=== PATIENT | male | born 1935 | race Asian ===

== ENCOUNTER 2021-02-16 08:16 | Inpatient (IN) | payer BC, OTHER ==
[~2021-02-16] VITALS: Ht 167.6 cm; Wt 70.3 kg
--- NOTE | 2021-02-16 08:28 | NUR ---
PT BIBRA FROM HOME TO ER BED 09, PER SEAMING MACHINE OPERATOR REPORT PT WAS C/O INTERMITTENT EPIGASTRIC AREA PAIN SINCE LAST NIGHT WORST X 1 HOUR QUALITY RN. PT STATES PAIN RESOLVE QUALITY RN. BUT IS ALSO C/O DIFFICULTY BREATHING SINCE 5AM. PT DENIES N/V/D. AFEBRILE. VSS. AWAITING MD SPIVEY.
--- NOTE | 2021-02-16 08:33 | NUR ---
DAUGHTER PRITI CONTACT # [phone]
--- NOTE | 2021-02-16 08:35 | NUR ---
DR HUNTLEY AT BEDSIDE FOR EVAL.
--- NOTE | 2021-02-16 08:40 | NUR ---
IV LINE STARTED BLOOD DRAWN AND SENT TO LAB.
[2021-02-16] MEDS ORDERED: SODI325T PO (08:50)
[2021-02-16] MEDS ORDERED: LOSA100T31 PO (08:50)
[2021-02-16] MEDS ORDERED: ALFU10TA10 PO (08:50)
[2021-02-16] MEDS ORDERED: OMEP40CA21 PO (08:50)
[2021-02-16] MEDS ORDERED: ATOR40TA PO (08:50)
[2021-02-16] MEDS ORDERED: LATA2.5D15 EACHEYE (08:50)
[2021-02-16 08:52] LABS: BASOPHILS % (AUTO) 0.8 % (0.0-2.0); HEMATOCRIT 31 % (39-51); HEMOGLOBIN 10.3 g/dL (13.5-17.5); LYMPHOCYTES # (AUTO) 1.3 K/uL (0.8-4.8); LYMPHOCYTES % (AUTO) 27.1 % (20.0-44.0); MEAN CORPUSCULAR HGB CONC 34 g/dl (31.0-36.0); MEAN CORPUSCULAR VOLUME 100 fL (80-96); MONOCYTES # (AUTO) 0.7 K/uL (0.1-1.30); MONOCYTES % (AUTO) 13.7 % (2.0-12.0); NEUTROPHILS # (AUTO) 2.7 K/uL (1.8-8.9); NEUTROPHILS % (AUTO) 55.4 % (43.0-81.0); PLATELET COUNT (AUTO) 112 K/uL (150-450); RED BLOOD CELL COUNT(AUTO) 3.06 MIL/uL (4.5-6.0); WHITE BLOOD COUNT (AUTO) 4.9 K/uL (4.3-11.0)
[2021-02-16 09:00] LABS: CARBON DIOXIDE 21 mmol/L (21-32); CHLORIDE 107 mmol/L (98-107); GLUCOSE 105 mg/dL (74-106); POTASSIUM 5.8 mmol/L (3.5-5.1); SODIUM SERUM 140 mmol/L (136-145); UREA NITROGEN, BLOOD 43 mg/dL (7-18)
[2021-02-16 09:13] LABS: ALANINE AMINOTRANSFERASE 53 U/L (12-78); ALBUMIN 3.4 g/dL (3.4-5.0); ALKALINE PHOSPHATASE 84 U/L (46-116); ASPARTATE AMINOTRANSFERASE 37 U/L (15-37); BILIRUBIN,DIRECT 0.1 mg/dL (0.0-0.2); BILIRUBIN,TOTAL 0.3 mg/dL (0.2-1.0); TOTAL PROTEIN, SERUM 6.9 g/dL (6.4-8.2)
--- NOTE | 2021-02-16 10:48 | NUR ---
CALLED NURSING SUP FOR TELE BED.
[2021-02-16] MEDS ORDERED: MAGNESIUM HYDROXIDE 30 ML UDC PO PRN (11:30)
[2021-02-16] MEDS ORDERED: ONDANSETRON HCL/PF 4 MG/2 ML VIAL IVP PRN (11:30)
[2021-02-16] MEDS ORDERED: MAG HYDROX/AL HYDROX/SIMETH 30 ML UDC PO PRN (11:30)
[2021-02-16] MEDS ORDERED: HYDROCODONE/APAP 5/325MG TABLET PO PRN (11:30)
[2021-02-16] MEDS ORDERED: MORPHINE SULFATE INJ 2 MG/ML DISP.SYRIN IV PRN (11:30)
[2021-02-16] MEDS ORDERED: Z GUARD REMEDY 2 OZ OINT TP PRN (11:30)
--- NOTE | 2021-02-16 11:35 | NUR ---
DAQUAN DAUGHTER LEFT CONTACT [phone]
--- NOTE | 2021-02-16 12:39 | NUR ---
REPORT GIVEN TO TERRY. AWAITING TRANSFER TO FLOOR.
--- NOTE | 2021-02-16 12:45 | NUR ---
PANTOGRAPH ENGRAVERPLUSH BRUSHER NOTE RECEIVED PATIENT FROM ER. STABLE - VITALS: 173/82. WEIGHT 155.5 A/O X3, SPEAKS INDONESIAN BUT UNDERSTANDS MONGOLIAN. PATIENT CAME IN DUE TO C/O EPIGASTRIC PAIN SINCE LAST NIGHT. IV ACCESS TO LEFT AC #20 - INTACT AND PATENT. NO CENTENO NOTED. PATIENT IS AMBULATORY WITH CANE. SKIN INTACT. FAMILY AT BEDSIDE. SAFETY MEASURES IN PLACE. CALL LIGHT WITHIN REACH. WILL CONTINUE TO MONITOR.
[2021-02-16 13:00] VITALS: BP 173/82
[2021-02-16 16:00] VITALS: BP 135/84
[2021-02-16] MEDS: SODIUM BICARBONATE 325 MG TABLET PO SCH (16:50)
--- NOTE | 2021-02-16 18:49 | NUR ---
ELECTROMEDICAL SERVICE ENGINEER CLOSING NOTE PATIENT CURRENTLY LYING IN BED, FAMILY AT BEDSIDE. A/O X3. SPEAKS BELARUSIAN BUT UNDERSTANDS DIVEHI. IV ACCESS TO LEFT AC #20 - INTACT AND PATENT, S/L. PATIENT IS AMBULATORY WITH CANE. SKIN INTACT. SAFETY MEASURES IN PLACE. CALL LIGHT WITHIN REACH. WILL ENDORSE TO ORIGINATION SPECIALIST NURSE FOR MILLIE.
[2021-02-16] MEDS: IV D5/ 0.9% NACL 1,000 ML IV PRN (18:52)
[2021-02-16] MEDS: ACETAMINOPHEN 325 MG TABLET PO PRN (18:52)
--- NOTE | 2021-02-16 19:05 | NUR ---
DATA WAREHOUSING ENGINEER OPENING NOTES: RECEIVED PATIENT IN BED, ASLEEP, EASILY AROUSABLE. NO S/S OF DISTRESS NOTED. A/O X3. NO COMPLAIN OF PAIN. CALL LIGHT WITHIN REACH. BED ALARM ON. BED IN LOWEST AND LOCKED POSITION. REMINDED PATIENT RE: URINE COLLECTION, VERBALIZED UNDERSTANDING.
[2021-02-16 20:00] VITALS: BP 128/72
[2021-02-16 20:11] LABS: IRON, SERUM 63 ug/dl (50-175); TOTAL IRON BINDING CAPACITY 191 ug/dl (250-450)
[2021-02-16 20:28] LABS: CHOLESTEROL 132 mg/dL (<200); FERRITIN 579 ng/mL (8-388); HDL CHOLESTEROL 58 mg/dL (40-60); LDL 55 mg/dL (0-99); TRIGLYCERIDES 135 mg/dL (30-150)
[2021-02-16] MEDS: LATANOPROST EYE DROP 0.005% 2.5 ML BOTTLE EACHEYE SCH (20:58)
[2021-02-16 23:26] LABS: BILIRUBIN,URINE NEGATIVE (NEGATIVE); COLOR,URINE YELLOW (YELLOW); LEUKOCYTE ESTERASE ,URINE NEGATIVE (NEGATIVE); NITRITE, URINE NEGATIVE (NEGATIVE); PH,URINE 7.5 (5.0-8.0); PROTEIN,URINE 30 mg/dl (NEGATIVE); UGLUCOSE NEGATIVE (NEGATIVE); UROBILINOGEN,URINE 0.2 EU/dL (0.2)
[2021-02-17] VITALS: BP 140/66
[2021-02-17] MEDS: TEMAZEPAM 15 MG CAPSULE PO PRN ×2 (00:02→21:01)
[2021-02-17 01:36] LABS: BACTERIA,URINE None seen /HPF (None Seen); RBC,URINE 0-2 /HPF (0-2); SQUAMOUS EPITHELIAL CELL,UR Few /HPF (None Seen); WBC,URINE 0-2 /HPF (0-3)
[2021-02-17 04:00] VITALS: BP 166/88
[2021-02-17] MEDS: IV D5/ 0.9% NACL 1,000 ML IV PRN ×3 (04:09→21:49)
[2021-02-17] MEDS: ACETAMINOPHEN 325 MG TABLET PO PRN (04:56)
--- NOTE | 2021-02-17 05:03 | NUR ---
patient complained of abdominal pain and stomach upset, tylenol 650 mg and maalox given.
[2021-02-17 05:54] VITALS: BP 168/83
--- NOTE | 2021-02-17 06:11 | NUR ---
RV=920/93, DR CHET BERRY INFORMED.
[2021-02-17 06:31] LABS: CHOLESTEROL 124 mg/dL (<200); HDL CHOLESTEROL 58 mg/dL (40-60); LDL 55 mg/dL (0-99); THYROID STIMULATING HORMONE 1.579 uIU/mL (0.358-3.74); TRIGLYCERIDES 112 mg/dL (30-150)
--- NOTE | 2021-02-17 06:46 | NUR ---
ENTERPRISE ACCOUNT EXECUTIVE CLOSING NOTES: PATIENT RESTING IN BED, ASLEEP. A/O X4. NO S/S OF DISTRESS NOTED. CALL LIGHT WITHIN REACH. BED ALARM ON. BED IN LOWEST AND LOCKED POSITION. URINAL AT THE BEDSIDE.
[2021-02-17 06:50] LABS: BASOPHILS % (AUTO) 0.4 % (0.0-2.0); HEMATOCRIT 30 % (39-51); HEMOGLOBIN 10.1 g/dL (13.5-17.5); LYMPHOCYTES # (AUTO) 1.6 K/uL (0.8-4.8); LYMPHOCYTES % (AUTO) 32.3 % (20.0-44.0); MEAN CORPUSCULAR HGB CONC 34 g/dl (31.0-36.0); MEAN CORPUSCULAR VOLUME 100 fL (80-96); MONOCYTES # (AUTO) 0.5 K/uL (0.1-1.30); MONOCYTES % (AUTO) 10.7 % (2.0-12.0); NEUTROPHILS # (AUTO) 2.6 K/uL (1.8-8.9); NEUTROPHILS % (AUTO) 53.6 % (43.0-81.0); PLATELET COUNT (AUTO) 113 K/uL (150-450); RED BLOOD CELL COUNT(AUTO) 2.94 MIL/uL (4.5-6.0); WHITE BLOOD COUNT (AUTO) 4.8 K/uL (4.3-11.0)
[2021-02-17 07:09] LABS: ALANINE AMINOTRANSFERASE 40 U/L (12-78); ALBUMIN 3.2 g/dL (3.4-5.0); ALKALINE PHOSPHATASE 59 U/L (46-116); ASPARTATE AMINOTRANSFERASE 23 U/L (15-37); BILIRUBIN,TOTAL 0.4 mg/dL (0.2-1.0); CALCIUM, SERUM 8.5 mg/dL (8.5-10.1); CARBON DIOXIDE 20 mmol/L (21-32); CHLORIDE 109 mmol/L (98-107); CREATININE 2.8 mg/dL (0.6-1.3); GLUCOSE 110 mg/dL (74-106); MAGNESIUM 1.9 mg/dL (1.8-2.4); PHOSPHORUS 3.9 mg/dL (2.5-4.9); POTASSIUM 5.3 mmol/L (3.5-5.1); SODIUM SERUM 140 mmol/L (136-145); TOTAL PROTEIN, SERUM 6.5 g/dL (6.4-8.2); UREA NITROGEN, BLOOD 36 mg/dL (7-18)
--- NOTE | 2021-02-17 07:30 | NUR ---
HOOF TRIMMER OPENING TRISH RECEIVED PATIENT SITTING ON BED, AWAKE AND RESPONSIVE, A/O X4. WITH IIV ACCESS AT RIGHT ARM WITH D5NS AT 125MLS/HR. WITHOUT COMPLAINTS OF PAIN AND SOB. NOT IN DISTRESS. SAFETY MEASURES IN PLACED. CALL LIGHTS WITHIN REACH. BED IN LOWEST AND LOCKED POSITION. TO CONTINUE TO MONITOR.
[2021-02-17 08:00] VITALS: BP 151/84
[2021-02-17] MEDS: PANTOPRAZOLE 40 MG TABLET.DR PO SCH (08:07)
[2021-02-17] MEDS: TAMSULOSIN 0.4 MG CAP.SR.24H PO SCH (09:12)
[2021-02-17] MEDS: ATORVASTATIN 40 MG TABLET PO SCH (09:13)
[2021-02-17] MEDS: SODIUM BICARBONATE 325 MG TABLET PO SCH (09:21)
[2021-02-17 16:00] VITALS: BP 139/72
[2021-02-17] MEDS: SODIUM BICARBONATE 650 MG TABLET PO SCH (17:00)
--- NOTE | 2021-02-17 18:26 | NUR ---
MS RN CLOSING NOTES PATIENT SITTING ON BED, AWAKE, A/O X4. WITH IV ACCESS AT LEFT AC #20 WITH IVF D5NS AT 125ML/HR AND AT LEFT HAND #22, SALINE LOCKED. WITH NO COMPLAINTS OF PAIN AND SOB. NOT IN DISTRESS. SAFETY MEASURES IN PLACED. CALL LIGHT WITHIN REACH. BED ALARM ON. BED ON LOWEST AND LOCKED POSITION, SIDE RAILS UP X2. URINAL AT THE BEDSIDE. NEEDS ATTENDED. WILL ENDORSE FOR MILLIE TO BARREL RAISER.
--- NOTE | 2021-02-17 19:18 | NUR ---
MS RN NOTES PATIENT SITTING ON BED, AWAKE, A/O X4. WITH IV ACCESS AT LEFT AC #20 WITH IVF D5NS AT 125ML/HR AND AT LEFT HAND #22, SALINE LOCKED. WITH NO COMPLAINTS OF PAIN AND SOB. NOT IN DISTRESS. SAFETY MEASURES IN PLACED. CALL LIGHT WITHIN REACH. BED ALARM ON. BED ON LOWEST AND LOCKED POSITION, SIDE RAILS UP X2. URINAL AT THE BEDSIDE. NEEDS ATTENDED. WILL CONTINUE TO MONITOR.
[2021-02-17 20:50] VITALS: BP 135/73
[2021-02-17] MEDS: LATANOPROST EYE DROP 0.005% 2.5 ML BOTTLE EACHEYE SCH (21:01)
[2021-02-18 06:16] LABS: BASOPHILS % (AUTO) 0.5 % (0.0-2.0); EOSINOPHILS % (AUTO) 3.4 % (0.0-6.0); HEMATOCRIT 29 % (39-51); LYMPHOCYTES # (AUTO) 1.3 K/uL (0.8-4.8); LYMPHOCYTES % (AUTO) 28.7 % (20.0-44.0); MEAN CORPUSCULAR HGB CONC 35 g/dl (31.0-36.0); MEAN CORPUSCULAR VOLUME 101 fL (80-96); MONOCYTES # (AUTO) 0.5 K/uL (0.1-1.30); NEUTROPHILS # (AUTO) 2.5 K/uL (1.8-8.9); NEUTROPHILS % (AUTO) 56.4 % (43.0-81.0); PLATELET COUNT (AUTO) 116 K/uL (150-450); RED BLOOD CELL COUNT(AUTO) 2.86 MIL/uL (4.5-6.0); WHITE BLOOD COUNT (AUTO) 4.4 K/uL (4.3-11.0)
--- NOTE | 2021-02-18 06:33 | NUR ---
MS RN NOTES PATIENT SITTING ON BED, AWAKE, A/O X4. WITH IV ACCESS AT LEFT AC #20 WITH IVF D5NS AT 125ML/HR AND AT LEFT HAND #22, SALINE LOCKED. WITH NO COMPLAINTS OF PAIN AND SOB. NOT IN DISTRESS. SAFETY MEASURES IN PLACED. CALL LIGHT WITHIN REACH. BED ALARM ON. BED ON LOWEST AND LOCKED POSITION, SIDE RAILS UP X2. URINAL AT THE BEDSIDE. NEEDS ATTENDED. ALL DUE MEDS GIVEN AND TOLERATED WELL WILL ENDORSE TO DAY SHIFT NURSE.
[2021-02-18 06:58] LABS: ALANINE AMINOTRANSFERASE 38 U/L (12-78); ALBUMIN 3.2 g/dL (3.4-5.0); ALKALINE PHOSPHATASE 67 U/L (46-116); ASPARTATE AMINOTRANSFERASE 30 U/L (15-37); BILIRUBIN,TOTAL 0.2 mg/dL (0.2-1.0); CALCIUM, SERUM 8.1 mg/dL (8.5-10.1); CARBON DIOXIDE 19 mmol/L (21-32); CHLORIDE 113 mmol/L (98-107); CREATININE 2.7 mg/dL (0.6-1.3); GLUCOSE 97 mg/dL (74-106); MAGNESIUM 1.7 mg/dL (1.8-2.4); PHOSPHORUS 3.7 mg/dL (2.5-4.9); SODIUM SERUM 143 mmol/L (136-145); TOTAL PROTEIN, SERUM 6.3 g/dL (6.4-8.2); UREA NITROGEN, BLOOD 28 mg/dL (7-18)
--- NOTE | 2021-02-18 07:30 | NUR ---
RN MS NOTES PT AWAKE, ALERT AND ORIENTED, SITTING IN BED, DENIES PAIN, NOT IN DISTRESS, CALL LIGHT WITHIN REACH, ASSISTED WITH NEEDS.
[2021-02-18] MEDS: PANTOPRAZOLE 40 MG TABLET.DR PO SCH (08:06)
[2021-02-18] MEDS: TAMSULOSIN 0.4 MG CAP.SR.24H PO SCH (08:06)
[2021-02-18] MEDS: SODIUM BICARBONATE 650 MG TABLET PO SCH (08:06)
[2021-02-18] MEDS: ATORVASTATIN 40 MG TABLET PO SCH (08:06)
[2021-02-18 08:30] VITALS: BP 143/88
--- NOTE | 2021-02-18 09:28 | NUR ---
RN MS NOTES PT SEEN AND EXAMINED BY DR. SHARPE, PLAN OF CARE DISCUSSED WITH PT AND DAUGHTER DAQUAN OVER THE PHONE, VERBALIZED UNDERSTANDING, MD CLEARED PT FOR DISCHARGE.
[2021-02-18] MEDS ORDERED: Magnesium 1GM/D5W 100ML PREMIX 100 ML IV SCH (09:30)
[2021-02-18] MEDS ORDERED: AMLO-212 PO (11:44)
--- NOTE | 2021-02-18 13:05 | NUR ---
MS STEAM TRAP WORKER NOTES PATIENT SITTING ON BED WITH NO COMPLAINT OF PAIN. NO SOB NOTER. NOT IN DISTRESS. FOR DISCHARGE PER DOCTOR'S ORDER. PRESCRIPTION GIVEN TO PATIENT AND DISCHARGE INSTRUCTION PROVIDED. PATIENT VERBALIZED UNDERSTANSING. ALL BELONGINGS CHECKED. INSTRUCTED PATIENT TO FOLLOW UP WITH PCP 1 WEEK AFTER DISCHARGE. ASSISTED PATIENT TO THE LOBBY VIA WHEELCHAIR IN STABLE CONDITION. PATIENT WAS PICKED UP BY DAUGHTER VIA PRIVATE CAR
== END 2021-02-18 13:00 | disposition home or self-care (01) | DRG 391 ==
LOC: ER 08:27 → TELE 12:11 → MED 02-17 08:17
PROVIDERS: ADMIT Nurse Practitioner Acute Care; ATTEND Nurse Practitioner Family
DX: K21.9 Gastro-esophageal reflux disease without esophagitis (principal); N17.0 Acute kidney failure with tubular necrosis; E87.5 Hyperkalemia; I12.9 Hypertensive chronic kidney disease with stage 1 through stage 4 chronic kidney disease, or unspecified chronic kidney disease; N18.9 Chronic kidney disease, unspecified; N40.0 Benign prostatic hyperplasia without lower urinary tract symptoms; E78.5 Hyperlipidemia, unspecified; Z79.899 Other long term (current) drug therapy; D53.9 Nutritional anemia, unspecified; H40.9 Unspecified glaucoma; I08.0 Rheumatic disorders of both mitral and aortic valves; I70.0 Atherosclerosis of aorta
CPT/HCPCS: 36415; 71045-TC; 76770-TC; 80048-TC; 80053-TC; 80061-TC; 80076-TC; 81001; 82728-TC; 83540-TC; 83690-TC; 83735-TC; 83880; 84100-TC; 84443-TC; 84484-TC; 85025-TC; 87081-TC; 93307-TC; C9803; G0378; J3475; J7042; J7050